=== PATIENT | male | born 1970 | race Hispanic/Latino ===

== ENCOUNTER 2017-12-22 21:40 | Emergency (ER) | payer SELFPAY ==
[2017-12-22 21:49] VITALS: BMI 26.6
[2017-12-22 21:54] VITALS: BP 113/75; PULSE 70; RESP 16; TEMP 98.1; O2SAT 96
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
== END 2017-12-22 23:00 | disposition home or self-care (01) ==
LOC: ED 21:40
DX: F19.10 Other psychoactive substance abuse, uncomplicated (principal)

== ENCOUNTER 2018-01-13 15:04 | Emergency (ER) | payer SELFPAY ==
[2018-01-13 15:15] VITALS: BMI 27.3
--- NOTE | 2018-01-13 15:33 | ED PDOC ---
Arrival/HPI - General Chief Complaint: Substance Abuse Time Seen by Provider: 01/13/18 15:20 Historian: Patient, Police - History of Present Illness Narrative History of Present Illness (Text): 01/13/18 15:29 A 49 year old male who is well-known to the Emergency room for substance abuse, whose past medical history includes substance/EtOH abuse, brought in by Yandy ARAYA to the emergency department for "being found sleeping on someone's porch." Patient denies any substance abuse and admits to consuming alcohol today. Patient is awake and requesting food at this time. No symptomatic complaints. No PMD Past Medical History - Provider Review Nursing Documentation Reviewed: Yes - Past History Past History: No Previous - Infectious Disease Hx of Infectious Diseases: None - Tetanus Immunization Tetanus Immunization: Unknown - Past Medical History Past Medical History: No Previous - Cardiac Hx Hypertension: No - Pulmonary Hx Tuberculosis: No - Neurological Hx Seizures: No - Hematological/Oncological Hx Cancer: No - Musculoskeletal/Rheumatological Hx Falls: No - Genitourinary/Gynecological Hx Sexually Transmitted Diseases: No - Psychiatric Hx Depression: No Hx Substance Use: Yes - Past Surgical History Past Surgical History: No Previous - Anesthesia Hx Anesthesia: No Hx Anesthesia Reactions: No - Suicidal Assessment Feels Threatened In Home Enviroment: No Family/Social History - Physician Review Nursing Documentation Reviewed: Yes Family/Social History: No Known Family HX Smoking Status: Heavy Smoker > 10 Cigarettes Daily Hx Alcohol Use: Yes Hx Substance Use: Yes Substance used: HEROIN Hx Substance Use Treatment: No Allergies/Home Meds Allergies/Adverse Reactions: Allergies No Known Allergies Allergy (Verified 01/13/18 15:15) Home Medications: Home Meds Medication Instructions Recorded Confirmed No Known Home Med 10/19/17 01/13/18 Review of Systems - Physician Review All systems were reviewed & negative as marked: Yes - Review of Systems Constitutional: absent: Fevers, Night Sweats Respiratory: absent: SOB, Cough Cardiovascular: absent: Chest Pain Gastrointestinal: absent: Abdominal Pain, Diarrhea, Nausea, Vomiting Neurological: absent: Headache, Dizziness Physical Exam Vital Signs Reviewed: Yes Vital Signs Temp Pulse Resp BP Pulse Ox 01/13/18 17:25 98 H 18 98 01/13/18 16:01 98.2 F 20 139/84 100 Pain Distress: None Mental Status: Positive for: Alert and Oriented X 3 - Systems Exam Head: Present: Atraumatic, Normocephalic Pupils: Present: PERRL Extroacular Muscles: Present: EOMI Conjunctiva: Present: Normal Mouth: Present: Moist Mucous Membranes Neck: Present: Normal Range of Motion Respiratory/Chest: Present: Clear to Auscultation, Good Air Exchange. No: Respiratory Distress, Accessory Muscle Use Cardiovascular: Present: Regular Rate and Rhythm, Normal S1, S2. No: Murmurs Abdomen: No: Tenderness, Distention, Peritoneal Signs Back: Present: Normal Inspection Upper Extremity: Present: Normal Inspection. No: Cyanosis, Edema Lower Extremity: Present: Normal Inspection. No: Edema Neurological: Present: GCS=15, CN II-XII Intact, Speech Normal Skin: Present: Warm, Dry, Normal Color. No: Rashes Psychiatric: Present: Alert, Oriented x 3, Normal Insight, Normal Concentration Medical Decision Making ED Course and Treatment: 01/13/18 15:30 Impression: 47 year old male brought in by [place] after being found sleeping on someone's porch. Physical exam is benign. Plan: -- Reassess and disposition Progress Notes: 01/14/18 12:07 pt upon arrival asking for dc. clinically sober taking po steady gait oriented x 3 observed in er and stable for dc - Scribe Statement The provider has reviewed the documentation as recorded by the Sarahi Snyder Provider Scribe Provider Scribe Attestation: All medical record entries made by the Scribe were at my direction and personally dictated by me. I have reviewed the chart and agree that the record accurately reflects my personal performance of the history, physical exam, medical decision making, and the department course for this patient. I have also personally directed, reviewed, and agree with the discharge instructions and disposition. Disposition/Present on Arrival - Present on Arrival Any Indicators Present on Arrival: No History of DVT/PE: No History of Uncontrolled Diabetes: No Urinary Catheter: No History of Decub. Ulcer: No History Surgical Site Infection Following: None - Disposition Have Diagnosis and Disposition been Completed?: Yes Diagnosis: Substance abuse Disposition: HOME/ ROUTINE Disposition Time: 05:00 Condition: STABLE Discharge Instructions (ExitCare): Alcohol Use - When Is Drinking a Problem?, Drug Abuse and Drug Addiction (DC) Referrals: [facility] [Outside] - Follow up with primary [facility] [Outside] - Follow up with primary Forms: [employer] (Kyrgyz)
[2018-01-13 16:02] VITALS: BP 139/84; TEMP 98.2
[2018-01-13 17:40] VITALS: PULSE 98; RESP 18; O2SAT 98
== END 2018-01-13 17:40 | disposition home or self-care (01) ==
LOC: ED 15:04
DX: F19.10 Other psychoactive substance abuse, uncomplicated (principal); F17.210 Nicotine dependence, cigarettes, uncomplicated

== ENCOUNTER 2018-01-22 16:32 | Emergency (ER) | payer SELFPAY ==
[2018-01-22 16:32] VITALS: BMI 27.3
[2018-01-22 17:03] VITALS: RESP 18; TEMP 97.9
[2018-01-22] MEDS ORDERED: Sodium Chloride 0.9% 1,000 ML IV STA (17:18)
--- NOTE | 2018-01-22 17:19 | ED PDOC ---
Arrival/HPI - General Chief Complaint: Substance Abuse Time Seen by Provider: 01/22/18 16:33 - History of Present Illness Narrative History of Present Illness (Text): 01/22/18 17:16 48 yo male, hx of herorin abuse/etoh abuse, presents s/p overdose. as per ems, called by family found in bathroom. narcan given motorized squad captain. upon arrival. pt is immediately noted to swallow bag of heroin. pt admits to swallowing one bag. at this time denies complaints. well known to er for similar presentations Past Medical History - Past History Past History: No Previous - Infectious Disease Hx of Infectious Diseases: None - Tetanus Immunization Tetanus Immunization: Unknown - Past Medical History Past Medical History: No Previous - Cardiac Hx Cardiac Disorders: No - Pulmonary Hx Respiratory Disorders: No - Neurological Hx Neurological Disorder: No - HEENT Hx HEENT Disorder: No - Renal Hx Renal Disorder: No - Endocrine/Metabolic Hx Endocrine Disorders: No - Hematological/Oncological Hx Blood Disorders: No - Integumentary Hx Dermatological Disorder: No - Musculoskeletal/Rheumatological Hx Musculoskeletal Disorders: No - Gastrointestinal Hx Gastrointestinal Disorders: No - Genitourinary/Gynecological Hx Genitourinary Disorders: No - Psychiatric Hx Psychophysiologic Disorder: Yes Hx Substance Use: Yes Other/Comment: Substance Abuse/heroin and alcohol - Past Surgical History Past Surgical History: No Previous - Anesthesia Hx Anesthesia: No Hx Anesthesia Reactions: No - Suicidal Assessment Feels Threatened In Home Enviroment: No Family/Social History Family/Social History: Unknown Family HX Smoking Status: Heavy Smoker > 10 Cigarettes Daily Hx Alcohol Use: Yes Frequency of alcohol use: Daily Hx Substance Use: Yes Substance used: HEROIN Hx Substance Use Treatment: No Allergies/Home Meds Allergies/Adverse Reactions: Allergies No Known Allergies Allergy (Verified 01/22/18 16:40) Review of Systems - Review of Systems Constitutional: Normal Eyes: Normal ENT: Normal Respiratory: Normal Cardiovascular: Normal Gastrointestinal: Normal Genitourinary Male: Normal Musculoskeletal: Normal Skin: Normal Neurological: Normal Endocrine: Normal Hemo/Lymphatic: Normal Psychiatric: Normal Physical Exam Vital Signs Temp Pulse Resp BP Pulse Ox 01/22/18 16:32 97.9 F 109 H 18 120/71 94 L Temperature: Afebrile Blood Pressure: Normal Pulse: Tachycardic Respiratory Rate: Normal Appearance: Positive for: Well-Appearing, Non-Toxic, Comfortable Pain Distress: None Mental Status: Positive for: Alert and Oriented X 3 - Systems Exam Head: Present: Atraumatic, Normocephalic Pupils: Present: Other (mildy constricted) Extroacular Muscles: Present: EOMI Conjunctiva: Present: Normal Mouth: Present: Moist Mucous Membranes Neck: Present: Normal Range of Motion Respiratory/Chest: Present: Clear to Auscultation, Good Air Exchange. No: Respiratory Distress, Accessory Muscle Use Cardiovascular: Present: Regular Rate and Rhythm, Normal S1, S2. No: Murmurs Abdomen: No: Tenderness, Distention, Peritoneal Signs, Rebound, Guarding Back: Present: Normal Inspection Upper Extremity: Present: Normal Inspection. No: Cyanosis, Edema Lower Extremity: Present: Normal Inspection. No: Edema Neurological: Present: GCS=15, CN II-XII Intact, Speech Normal Skin: Present: Warm, Dry, Normal Color. No: Rashes Psychiatric: Present: Alert, Oriented x 3, Normal Insight, Normal Concentration Medical Decision Making ED Course and Treatment: 01/22/18 18:07 pt s/p narcan. upon arrival, pt admits to "swallowing bag of heroin". pt states it was paper bag, and "had less than his usual amount he uses". i discussed case with poison control. recommend symptomatic observation, no wbi, no charcoal. during ed course., pt observed awake alert, oriented x 3, asking for food. i recommended observation overnight as pt swallowed heroin and overdosed. he is requesting immediate discharge home. his friend who arrived, is requesting to take pt home. pt states he swallowed bag to avoid arrest. no si hi. clinically sober. vitals stable. discussed with pt at length, over 30 min bedside specifically requesting pt to be observed longer. he refuses. signs AMA. he is clinically sober, oriented x 3, understands all risks. i have explained multiple times and pt understands that there is high likelihood of overdose again, he understands and "States he needs to picker and sorter load and unload his daughter" The patient is choosing to leave against medical advice. I have personally explained to the patient that choosing to do so may result in permanent bodily harm or . I have discussed at great length that without further evaluation and monitoring there may be unforeseen circumstances and/or deterioration causing permanent bodily harm or as a result of their choice. The patient is alert, oriented, and shows the mental capacity to make clear decisions regarding the patients health care at this time. The patient continues to wish to leave against medical advice. In light of the patients decision to leave against medical advice, follow-up has been arranged and the patient is aware of the importance to following up as instructed. The patient has been advised that they should return to the emergency room immediately if they change their mind at any time, or if their condition begins to change or worsen in any way. - Lab Interpretations Lab Results: 01/22/18 17:01/22/18 17: Lab Results 01/22/18 17:: Alcohol, Quantitative 45 H 01/22/18 17:: Salicylates < 1 L, Acetaminophen < 10.0 L 01/22/18 17:: Urine Opiates Screen Positive H, Urine Methadone Screen Negative , Ur Barbiturates Screen Negative, Ur Phencyclidine Scrn Negative, Ur Amphetamines Screen Negative, U Benzodiazepines Scrn Positive H, U Oth Cocaine Metabols Positive H, U Cannabinoids Screen Negative 01/22/18 17:: Sodium 144, Potassium 4.0, Chloride 103, Carbon Dioxide 27, Anion Gap 18, BUN 18, Creatinine 1.4, Est GFR ( Amer) > 60, Est GFR (Non- Af Amer) 54, Random Glucose 141 H, Calcium 9.0, Magnesium 2.0, Total Bilirubin 0.5, AST 59, ALT 69 H, Alkaline Phosphatase 72, Total Protein 8.1, Albumin 4.2, Globulin 3.9, Albumin/Globulin Ratio 1.1 01/22/18 17:31: Urine Color Yellow, Urine Appearance Clear, Urine pH 6.0, Ur Specific [place] >= 1.030, Urine Protein 100 H, Urine Glucose (UA) Negative, Urine Ketones Trace H, Urine Blood Negative, Urine Nitrate Negative, Urine Bilirubin Negative, Urine Urobilinogen 0.2, Ur Leukocyte Esterase Negative, Urine RBC 5 - 10, Urine WBC 2 - 5, Ur Epithelial Cells 1 - 3, Urine Bacteria Mod , Urine Other Mucus 01/22/18 17:31: WBC 5.0, RBC 4.97, Hgb 15.3, Hct 45.1, MCV 90.7, MCH 30.8, MCHC 33.9, RDW 13.0, Plt Count 176, MPV 10.5, Gran % 63.4, Lymph % (Auto) 22.9, [place] % (Auto) 12.7 H, Eos % (Auto) 0.6 L, Baso % (Auto) 0.4, Gran # 3.15, Lymph # ( Auto) 1.1 L, [place] # (Auto) 0.6, Eos # (Auto) 0.0, Baso # (Auto) 0.02 - RAD Interpretation Radiology Orders: 01/22/18 16:53 CHEST PORTABLE [RAD] Stat 01/22/18 17:44 ABDOMEN (FLAT PLATE) 1VIEW [RAD] Stat - Medication Orders Current Medication Orders: Discontinued Medications Sodium Chloride (Sodium Chloride 0.9%) 1,000 mls @ 999 mls/hr IV .Q1H1M STA Stop: 01/22/18 18:18 Last Admin: 01/22/18 17:44 Dose: 999 mls/hr eMAR Start Stop Document 01/22/18 17:44 GMD (Rec: 01/22/18 17:44 GMD [id number]) Intravenous Solution Start Date 01/22/18 Start Time 17:44 End Date 01/22/18 End time 18:44 Total Infusion Time 60 Disposition/Present on Arrival - Present on Arrival Any Indicators Present on Arrival: No History of DVT/PE: No History of Uncontrolled Diabetes: No Urinary Catheter: No History of Decub. Ulcer: No History Surgical Site Infection Following: None - Disposition Have Diagnosis and Disposition been Completed?: Yes Diagnosis: Overdose, Left against medical advice Disposition: AGAINST MEDICAL ADVICE Disposition Time: 18:12 Patient Problems: Current Active Problems Problem Status Onset Overdose Acute Left against medical advice Acute Condition: STABLE Discharge Instructions (ExitCare): Narcotic Overdose , Leaving Against Medical Advice, How to Give Naloxone Prescriptions: Naloxone HCl [Evzio] 0.4 mg IJ ONCE PRN #1 auto.injct PRN Reason: Opiate Reversal Referrals: PCP,NO [Non-Staff] - Follow up with primary Forms: [employer] (Bengali)
[2018-01-22 17:51] LABS: ACETAMINOPHEN < 10.0 ug/ml (10.0-20.0); ALB/GLOB RATIO 1.1 (1.1-1.8); ALBUMIN 4.2 g/dL (3.0-4.8); ALT/SGPT 69 U/L (7-56); AST/SGOT 59 U/L (17-59); BLOOD UREA NITROGEN 18 mg/dL (7-21); GFR NON-AFRICAN AMERICAN 54; SALICYLATE < 1 mg/dL (2.0-20.0)
[2018-01-22 17:52] LABS: BASO # 0.02 K/mm3 (0.0-2.0); BASO % 0.4 % (0.0-3.0); EOS % 0.6 % (1.5-5.0); GRAN # 3.15 (1.4-6.5); GRAN % 63.4 % (50.0-68.0); HEMOGLOBIN 15.3 g/dL (14.0-18.0); LYMPH # 1.1 (1.2-3.4); LYMPH % 22.9 % (22.0-35.0); MEAN CELL VOLUME 90.7 fl (80.0-105.0); MEAN CORPUSCULAR HEMOGLOBIN 30.8 pg (25.0-35.0); MEAN CORPUSCULAR HGB CONC 33.9 g/dl (31.0-37.0); MEAN PLATELET VOLUME 10.5 fl (7.0-11.0); MONO # 0.6 (0.1-0.6); MONO % 12.7 % (1.0-6.0); RBC 4.97 10^6/uL (3.5-6.1)
[2018-01-22 17:53] LABS: URINE BILIRUBIN NEGATIVE (NEGATIVE); URINE BLOOD NEGATIVE (NEGATIVE); URINE GLUCOSE (UA) NEGATIVE (NEGATIVE); URINE LEUKOCYTE ESTERASE NEGATIVE Leu/uL (NEGATIVE); URINE PROTEIN 100 mg/dL (<30 mg/dL); URINE UROBILINOGEN 0.2 E.U./dL (<1 E.U./dL)
[2018-01-22 17:54] LABS: URINE APPEARANCE CLEAR (CLEAR); URINE COLOR YELLOW (YELLOW)
[2018-01-22 18:07] LABS: URINE BACTERIA MOD (NEG)
[2018-01-22 18:20] LABS: BARBITURATES, UR NEGATIVE (NEGATIVE); BENZODIAZEPINES, UR POSITIVE (NEGATIVE); OPIATES, UR POSITIVE (NEGATIVE); PHENCYCLIDINE, UR NEGATIVE (NEGATIVE)
[2018-01-22 18:43] VITALS: BP 118/76; PULSE 98; O2SAT 96
--- NOTE | 2018-01-23 09:39 | RAD ---
Date of service: 01/22/2018 HISTORY: overdose COMPARISON: 02/10/2015 FINDINGS: LUNGS: No active pulmonary disease. PLEURA: No significant pleural effusion identified, no pneumothorax apparent. CARDIOVASCULAR: Normal. OSSEOUS STRUCTURES: No significant abnormalities. VISUALIZED UPPER ABDOMEN: Normal. OTHER FINDINGS: None. IMPRESSION: No active disease.
--- NOTE | 2018-01-23 10:18 | RAD ---
Date of service: 01/22/2018 HISTORY: swallow bag of heroin COMPARISON: No prior. FINDINGS: BOWEL: Normal. No obstruction. No free air. BONES: Normal. OTHER FINDINGS: None. IMPRESSION: No active disease.
== END 2018-01-22 18:52 | disposition left against medical advice (07) ==
LOC: ED 16:32
DX: T40.1X1A Poisoning by heroin, accidental (unintentional), initial encounter (principal); F17.210 Nicotine dependence, cigarettes, uncomplicated
CPT/HCPCS: 71045; 74018; 80053; 81001; 83735; 85025; 96360; 99285; G0480; J7030